=== PATIENT | female | born 1995 | race Caucasian/White ===

== ENCOUNTER 2017-08-07 22:36 | Emergency (ER) | payer OTHER ==
[2017-08-07 22:41] VITALS: O2SAT 96
[2017-08-07] MEDS ORDERED: NS 1,000 ML IV ONE (23:18)
[2017-08-07] MEDS ORDERED: HYDROmorphONE/DILAUDID 1 MG/ML INJ IVP ONE (23:18)
[2017-08-07 23:43] LABS: % IMMATURE GRANULYOCYTES 0.3 % (0.0-1.1); ABSOLUTE IMMATURE GRANULOCYTES 0.04 10^3/uL (0.00-0.10); ADD DIFF? NO; ADD MORPH? NO; ADD SCAN? NO; ATYPICAL LYMPHOCYTE FLAG 10 (0-99); FRAGMENT RBC FLAG 0 (0-99); LEFT SHIFT FLG 0 (0-99); LIPEMIA HEMOLYSIS FLAG 90 (0-99); MEAN CELL HEMOGLOBIN 28.3 pg (27.9-34.1); MEAN CELL VOLUME 80.8 fL (81.5-99.8); MEAN PLATELET VOLUME 9.9 fL (8.7-11.7); PLATELET CLUMPS FLAG 10 (0-99); PLATELET COUNT 262 10^3/uL (150-400); RED BLOOD CELL COUNT 4.95 10^6/uL (4.18-5.33); RED CELL DISTRIBUTION WIDTH 12.1 % (11.5-15.2)
--- NOTE | 2017-08-07 23:50 | EDPHY ---
H & P Stated Complaint: abd/back pain HPI/ROS: Chief complaint: Abdominal and back pain History of present illness: This is a 21-year-old female who presents to the emergency department for abdominal and back pain. She reports the onset of symptoms over the last day. She reports abdominal pain across the lower abdomen , radiating down into both legs. She describes the back pain is pain in the mid aspect of the back radiating up to both shoulders. Further, she has had a persistent sore throat for the last few days. Associated with the sore throat is feeling generalized fatigue and malaise. She denies precipitating factors. She denies alleviating factors. She denies other associated signs or symptoms. Review of systems: A 10 point review of systems was obtained and other than described above was negative - Personal History LMP (Females 10-55): Now Current Tetanus/Diphtheria Vaccine: Yes - Medical/Surgical History Hx Asthma: No Hx Chronic Respiratory Disease: No Hx Diabetes: No Hx Cardiac Disease: No Hx Renal Disease: No Hx Cirrhosis: No Hx Alcoholism: No Hx HIV/AIDS: No Hx Splenectomy or Spleen Trauma: No Other PMH: psoriasis. hx mono - Social History Smoking Status: Never smoked - Physical Exam Exam: General Appearance: Alert, nontoxic, easily conversing with me. Eyes: Pupils equal and round no pallor or injection. ENT, Mouth: Tympanic membranes, external auditory canals, external ears and surrounding soft tissue including over the mastoids are unremarkable. Nasopharynx is not injected. There is no rhinorrhea. Oropharynx is mildly injected. There is no edema. There is no exudate. There is no asymmetry. The uvula is midline. Tonsils are erythematous and edematous with some exudate. They are symmetrical. No elevation of the tongue. There is no hoarseness, no drooling, no trismus, no stridor. Respiratory: There are no retractions, lungs are clear to auscultation. Cardiovascular: Regular rate and rhythm. Gastrointestinal: Abdomen is soft and non tender, no masses, bowel sounds normal. Genitourinary: No CVA tenderness. Neurological: Alert and oriented x4. Strength and sensation intact and symmetrical. No meningismus. Skin: Warm and dry, no rashes. Musculoskeletal: Neck is supple non tender. Extremities are symmetrical, full range of motion. Psychiatric: Patient is oriented X 3, there is no agitation. Constitutional: Initial Vital Signs Temperature (C) 37.1 C 08/07/17 22:38 Heart Rate 130 H 08/07/17 22:38 Respiratory Rate 20 08/07/17 22:38 Blood Pressure 139/96 H 08/07/17 22:38 O2 Sat (%) 96 08/07/17 22:38 O2 Delivery Mode Room Air Allergies/Adverse Reactions: prednisone Allergy (Verified 08/07/17 22:41) Other-Enter Comments Home Medications: Medication Instructions Recorded Bcp 08/07/17 Prozac 20 MG (*) 08/07/17 Amoxicillin Trihydrate [Amoxil] 500 mg PO TID 10 Days cap 08/08/17 Medical Decision Making ED Course/Re-evaluation: Patient is discussed with my secondary supervising physician Dr. Iain Gonzalez. Patient presents to the emergency depart with multiple complaints. She complains of abdominal pain, back pain and sore throat. On presentation she is nontoxic. Physical exam does reveal evidence of an acute tonsillitis. The rest of her exam including abdominal and back exam is unremarkable including a nonfocal neurologic exam. Baseline blood studies show a mild leukocytosis, this could be from the tonsillitis. The rest of her labs are unremarkable. Urinalysis does show some blood, she is currently on her menstrual cycle. No evidence of infection. We have discussed pursuing imaging studies including CT scan of the abdomen and pelvis and a pelvic ultrasound. She has declined. I have offered her a pelvic examination for further evaluation, she further declines. On re-evaluation she is feeling better. Repeat exam including abdominal exam remained benign. We have discussed the tonsillitis and she would like to treat with antibiotics. She is started on amoxicillin. She is asked to follow up with a primary care doctor for recheck. Strict return precautions are given. The patient voiced understanding and agreement with plan. Differential Diagnosis: Included but not limited to pharyngitis, strep pharyngitis, tonsillitis, complications such as abscess formation, unlikely meningitis as well as causes of back pain is such as musculoskeletal: Urinary track issues and radiating pain from abdominal pathology such as gastritis, biliary tract disease, pancreatitis, colitis, appendicitis as well as pelvic complications such as an associated complications, infection including PID and tubo-ovarian abscess - Data Points Laboratory Results: Laboratory Results 08/07/17 23:30 08/07/17 23:30 Medications Given: Discontinued Medications Amoxicillin (Amoxicillin) 500 mg PO EDNOW ONE PRN Reason: Protocol Stop: 08/08/17 01:34 Last Admin: 08/08/17 01:38 Dose: 500 mg Hydromorphone HCl (Dilaudid) 0.5 mg IVP EDNOW ONE Stop: 08/07/17 23:19 Last Admin: 08/07/17 23:38 Dose: 0.5 mg Sodium Chloride (Ns) 1,000 mls @ 0 mls/hr IV EDNOW ONE; Wide Open PRN Reason: Protocol Stop: 08/07/17 23:19 Last Admin: 08/07/17 23:39 Dose: 1,000 mls Departure - Departure Disposition: Home, Routine, Self-Care Clinical Impression: Acute bacterial tonsillitis Abdominal pain Qualifiers: Abdominal location: generalized Qualified Code(s): R10.84 - Generalized abdominal pain Back pain Qualifiers: Back pain location: low back pain Chronicity: acute Back pain laterality: bilateral Sciatica presence: without sciatica Qualified Code(s): M54.5 - Low back pain Condition: Good Instructions: Amoxicillin (By mouth), Acute Abdominal Pain (ED), Tonsillitis ( ED), Back Pain (ED) Additional Instructions: Follow-up with your primary care doctor on Wednesday for recheck If symptoms worsen or new symptoms develop return to the emergency room for recheck Referrals: DR SEGUN [Other] - As per Instructions Junito Waters MD [Medical Doctor] - As per Instructions Prescriptions: Amoxicillin Trihydrate [Amoxil] 500 mg PO TID 10 Days cap
[2017-08-07 23:53] LABS: ALANINE AMINOTRANSFERASE 40 IU/L (9-52); ALBUMIN 4.2 g/dL (3.5-5.0); ALKALINE PHOSPHATASE 110 IU/L (38-126); ANION GAP 17 mEq/L (8-16); ASPARTATE AMINOTRANSFERASE 24 IU/L (14-46); BILIRUBIN,TOTAL 0.9 mg/dL (0.1-1.4); BILIRUBIN-CONJUGATED 0.3 mg/dL (0.0-0.5); BILIRUBIN-UNCONJUGATED 0.6 mg/dL (0.0-1.1); CALCIUM 9.3 mg/dL (8.5-10.4); CARBON DIOXIDE 21 mEq/l (22-31); CHLORIDE 100 mEq/L (97-110); CREATININE 0.7 mg/dL (0.6-1.0); GLOMERULAR FILTRATION RATE > 60; GLUCOSE 92 mg/dL (70-100); SODIUM 138 mEq/L (134-144); TOTAL PROTEIN 7.7 g/dL (6.3-8.2)
[2017-08-08 00:34] LABS: COLOR YELLOW; LEUKOCYTE ESTERASE,URINE NEGATIVE (NEGATIVE); NITRITE,URINE NEGATIVE (NEGATIVE)
[2017-08-08 00:57] LABS: MUCUS TRACE /lpf (NONE-1+)
[2017-08-08 01:42] VITALS: RESP 16
[2017-08-08 01:43] VITALS: BP 133/91; PULSE 89; TEMP 98.8
== END 2017-08-08 01:45 | disposition home or self-care (01) ==
DX: J03.80 Acute tonsillitis due to other specified organisms (principal); B96.89 Other specified bacterial agents as the cause of diseases classified elsewhere; M54.5 Low back pain; R10.84 Generalized abdominal pain; E86.9 Volume depletion, unspecified
CPT/HCPCS: 96374; J1170

== ENCOUNTER 2017-12-30 01:55 | Emergency (ER) | payer OTHER ==
--- NOTE | 2017-12-30 02:43 | EDPHY ---
H & P Stated Complaint: L SECOND TOE DISCOLORATION, STREAKS Time Seen by Provider: 12/30/17 02:31 HPI/ROS: Chief Complaint: Toe pain and swelling HPI: 22-year-old female developed pain and swelling at the base of the toenail of her left 2nd toe yesterday. She has been having progressively worsening redness and swelling and is not having some streaking up the top of her foot. No known injuries. No fevers or chills. No history of ingrown toenails or fungal infections in the past. ROS: 10 point Review of Systems is negative except as noted in the HPI. PMH: Denies Social History: No smoking, occasional alcohol, no recreational drug use Family History: non-contributory Physical Exam: Gen: Awake, Alert, No Distress HEENT: Nose: no rhinorrhea Eyes: PERRLA, EOMI Mouth: Moist mucosa Ext: no edema, patient has redness and tenderness at the base of her paronychial fold of her left 2nd toe. There is mild erythematous streaking to the proximal phalanx and mild on the dorsum of her foot Skin: no rash Neuro: CN II-XII intact, Sensation grossly intact, Strength 5/5 in bilateral upper and lower extremities - Personal History LMP (Females 10-55): Now Current Tetanus Diphtheria and Acellular Pertussis (TDAP): Yes - Medical/Surgical History Hx Asthma: No Hx Chronic Respiratory Disease: No Hx Diabetes: No Hx Cardiac Disease: No Hx Renal Disease: No Hx Cirrhosis: No Hx Alcoholism: No Hx HIV/AIDS: No Hx Splenectomy or Spleen Trauma: No Other PMH: psoriasis. hx mono - Social History Smoking Status: Never smoked Constitutional: Initial Vital Signs Temperature (C) 37.2 C 12/30/17 02:00 Heart Rate 107 H 12/30/17 02:00 Respiratory Rate 16 12/30/17 02:00 Blood Pressure 162/93 H 12/30/17 02:00 O2 Sat (%) 96 12/30/17 02:00 O2 Delivery Mode Room Air Allergies/Adverse Reactions: prednisone Allergy (Verified 08/07/17 22:41) Other-Enter Comments Home Medications: Medication Instructions Recorded Bcp 08/07/17 Prozac 20 MG (*) 08/07/17 Cephalexin [Keflex (*)] 500 mg PO Q6H #40 cap 12/30/17 Medical Decision Making Procedures: Procedure: Toenail excision 22-year-old with an ingrown toenail. Patient was anesthetized with a digital nerve block with 0.5% bupivacaine with excellent anesthesia. She was prepped with chlorhexidine. The medial aspect of the 2nd nail was excised with scissors and blunt dissection. There was no purulent discharge. Patient tolerated procedure well. Was dressed in clean sterile dressing. Procedures performed by me. Departure - Departure Disposition: Home, Routine, Self-Care Clinical Impression: Cellulitis, Ingrown toenail Condition: Good Instructions: Cellulitis (ED), Ingrown Nail (ED) Additional Instructions: Please take your full course of antibiotics. [facility] for [facility] evaluation. Return to the emergency department for worsening redness on your foot, worsening pain, fevers, or any other concerns. Referrals: [facility],. [Clinic] - As per Instructions Prescriptions: Cephalexin [Keflex (*)] 500 mg PO Q6H #40 cap
[2017-12-30] MEDS ORDERED: CEPHALEXIN 500MG PREPACK#4 BTL TAKEHOME ONE (02:44)
[2017-12-30 03:13] VITALS: BP 127/85
== END 2017-12-30 03:40 | disposition home or self-care (01) ==
PROC: 0HDRXZZ Extraction of Toe Nail, External Approach (ICD-10-PCS; principal; 2017-12-30)
DX: L60.0 Ingrowing nail (principal); L03.032 Cellulitis of left toe